=== PATIENT | male | born 1975 | race Caucasian/White ===

== ENCOUNTER → 2017-01-08 | Outpatient (CLI) | payer OTHER ==
[~2017-01-08] MED LIST: ASPI-515 PO; CARV6.252 PO; CLOP75TA PO; DOCU100C8 PO; ERGO500047 PO; FLUT15.88 INH; HYDR-3144 PO; INSU100I11 SC; INSU100V8 SQ; IRBE300T40 PO; ISOS30TA8 PO; LATA2.5D3 EACHEYE; ROSU20TA PO; SPIR25TA3 PO; [UNRECOGNIZED DRUG - OTHER] PO
== END | disposition home or self-care (01) ==
LOC: PETCFH 08:32
PROVIDERS: ATTEND Internal Medicine Gastroenterology
DX: E11.9 Type 2 diabetes mellitus without complications (principal); R10.13 Epigastric pain; I25.119 Atherosclerotic heart disease of native coronary artery with unspecified angina pectoris
CPT/HCPCS: 78264; A9541

== ENCOUNTER → 2017-01-09 | Outpatient (CLI) | payer OTHER | END | disposition home or self-care (01) | LOC: CFH 08:12 | PROVIDERS: ATTEND Nurse Practitioner Family | DX: I25.119 Atherosclerotic heart disease of native coronary artery with unspecified angina pectoris (principal) | CPT/HCPCS: 78452; 93017; A9502 ==